=== PATIENT | male | born 1990 | race Caucasian/White ===

== ENCOUNTER 2019-03-19 11:01 | Emergency (ER) | payer BC ==
--- NOTE | 2019-03-19 11:08 | NUR ---
During triage, pt states the only reason why he wants to be seen here is to obtain a flu shot. Informed patient we are unable to administer flu vaccine to him here and patient decided to leave without being triaged.
== END 2019-03-19 11:08 | disposition left against medical advice (07) ==
LOC: MED 11:01
DX: Z53.21 Procedure and treatment not carried out due to patient leaving prior to being seen by health care provider (principal)